=== PATIENT | female | born 1935 | race Caucasian/White ===

== ENCOUNTER 2016-05-11 10:12 | Emergency (ER) | payer MEDICARE, BC ==
[2016-05-11] MEDS ORDERED: NS 0.9% 1000 ML* 2,000 ML IV ONE (11:40)
[2016-05-11 11:50] LABS: Hematocrit 35 % (35-47); Hemoglobin 11.7 g/dl (12.0-16.0); Mean Corpuscular HGB Conc 33 g/dl (31-36); Mean Corpuscular Hemoglobin 30 pg (27-31); Mean Corpuscular Volume 88 fL (80-97); Mean Platelet Volume 8 um3 (7.4-10.4); Red Blood Count 3.96 10^6/ul (4.0-5.4); Red Cell Distribution Width 14 % (10.5-15); White Blood Count 6.4 10^3/ul (3.5-10.8)
[2016-05-11 12:02] LABS: BUN/Creatinine Ratio 17.9 (8-20); Calcium 9.4 mg/dL (8.6-10.3); EGFR African American 73.2 (>60); EGFR Non-African American 56.9 (>60); Globulin 2.6 g/dL (2-4); Magnesium 2.2 mg/dL (1.9-2.7); Potassium 4.2 mmol/L (3.5-5.0); Total Bilirubin 0.4 mg/dL (0.2-1.0); Total Protein 6.6 g/dL (6.4-8.9)
--- NOTE | 2016-05-11 12:03 | RAD ---
INDICATION: Syncope. CVA. Bleed. COMPARISON: MRI brain May 31, 2010 TECHNIQUE: Noncontrast axial source images were acquired from the skull base to the vertex. FINDINGS: Ventricles/sulci: The ventricles and cisterns are normal in size and configuration for age. Brain parenchyma: There is no focal parenchymal finding, evidence of intracranial mass, or intracranial mass effect. Intracranial hemorrhage:None. Extra-axial spaces: There are no abnormal extra axial fluid collections or evidence of extra-axial mass. Calvarium: There is no calvarial fracture or other calvarial abnormality. Scalp: There is no evidence of scalp or extracalvarial soft tissue abnormality. Paranasal sinuses/mastoid: The paranasal sinuses and mastoid air cells are clear. Other: None. IMPRESSION: NO ACUTE INTRACRANIAL FINDINGS
[2016-05-11 12:11] LABS: TSH (Thyroid Stimulating Horm) 2.55 mcIU/mL (0.34-5.60)
--- NOTE | 2016-05-11 12:22 | RAD ---
INDICATION: Dizziness, fall. Negative for loss of consciousness. COMPARISON: January 31, 2016 chest radiograph and May 26, 2015 CT. TECHNIQUE: Dual energy PA and routine lateral views of the chest were obtained. REPORT: Elevated lung volumes with increased AP thoracic diameter and partial flattening of the hemidiaphragms. Mild prominence of the interstitial markings and multiple unchanged bilateral small calcified pulmonary granulomas. No alveolar consolidation, suspicious focal pulmonary lesion, pleural effusion, pneumothorax. The heart, pulmonary vasculature, and mediastinal contours are unremarkable. Thoracic degenerative spondylosis and mildly increased thoracic kyphosis. IMPRESSION: Stigmata of chronic obstructive pulmonary disease as well as previous granulomatous disease.. No acute cardiopulmonary process evident.
--- NOTE | 2016-05-11 14:01 | ED ---
Marcellus Graves Matthew, scribed for Ronal Luu MD on 05/11/16 at 1205 . Syncope/Near Syncope - HPI Summary HPI Summary: A 80 y/o female presents to the ED after a syncopal episode at 02:00 this morning. She sat on the edge of her bed in the middle of the night and when she stood up she became dizzy and syncopated. Associated symptoms include LOC. She denies urinary symptoms, palpitations, calf pain, vomiting, diarrhea, fever, slurred speech, weakness, dizziness - currently, blood w/ stool, black stools, head trauma, and back pain. The patient states that she has felt unsteady for the past few weeks. She has a Hx of near syncopal episodes. On one occasion she was dehydrated and on another it was a result of a vasovagal syncope. She does not become dizzy when sitting up. The patient is not on a blood thinners. She recently had right knee surgery and has been doing physical therapy, which has consisted of biking 2 miles on a stationary bike. She admits that she may not be drinking enough fluids post work-out. - History Of Current Complaint Chief Complaint: EDSyncope Time Seen by Provider: 05/11/16 11:08 Hx Obtained From: Patient Onset/Duration: Sudden Onset, Lasting Minutes, Resolved Context: Unwitnessed, Loss Of Consciousness Activity At Onset: Exertion - ambulation Associated Head Trauma: No Aggravating Factor(s): Position Change Alleviating Factor(s): Spontaneous Resolution Associated Signs And Symptoms: Dizzy - since resolved - Allergies/Home Medications Allergies/Adverse Reactions: Allergies Allergy/AdvReac Type Severity Reaction Status Date / Time Iodinated Diagnostic Agents Allergy Severe Rash Verified 02/03/16 06:25 CATS/TREE POLLENS Allergy RUNNY Uncoded 02/03/16 06:25 NOSE, DRY EYES PMH/Surg Hx/FS Hx/Imm Hx Endocrine/Hematology History: Reports: Hx Thyroid Disease Cardiovascular History: Reports: Hx Peripheral Vascular Disease - VARICOSE VEINS , Other Cardiovascular Problems/Disorders - CHOLESTEROL CONTROL WITH MEDS Respiratory History: Reports: Hx Asthma, Other Respiratory Problems/Disorders - PATIENT STATES SHE HAS A RUNNY NOSE ALL THE TIME Musculoskeletal History: Reports: Hx Arthritis - RIGHT KNEE Sensory History: Reports: Hx Cataracts - HX OF, Hx Contacts or Glasses - GLASSES Denies: Hx Hearing Aid Opthamlomology History: Reports: Hx Cataracts - HX OF, Hx Contacts or Glasses - GLASSES Psychiatric History: Reports: Hx Anxiety - CONTROL WITH MEDS - Cancer History Cancer Type, Location and Year: Melanoma 2013 Hx Chemotherapy: No Hx Radiation Therapy: No - Surgical History Surgery Procedure, Year, and Place: GB REMOVED 1994, TONSILECTOMY, LEFT SHOULDER SURGERY, rotator cuff 03/07. Right TKA. Melanoma repair Hx Anesthesia Reactions: No Infectious Disease History: No Infectious Disease History: Reports: Hx Shingles - YEARS AGO Denies: Traveled Outside the [place] in Last 30 Days - Family History Known Family History: Positive: Cardiac Disease, Hypertension - Social History Alcohol Use: None Substance Use Type: Reports: None Hx Tobacco Use: No Smoking Status (MU): Never Smoked Tobacco Have You Smoked in the Last Year: No Review of Systems Constitutional: Negative Negative: Fever Eyes: Negative ENT: Negative Cardiovascular: Negative Negative: Palpitations, Chest Pain Respiratory: Negative Negative: Shortness Of Breath Gastrointestinal: Negative Negative: Vomiting Genitourinary: Negative Negative: incontinence Musculoskeletal: Negative Negative: Myalgia, Edema Skin: Negative Neurological: Other - near syncope Positive: Syncope. Negative: Weakness, Slurred Speech Psychological: Normal All Other Systems Reviewed And Are Negative: Yes Physical Exam - Summary Physical Exam Summary: The patient is well-nourished in no acute distress and in no acute pain. The skin is warm and dry and skin color reflects adequate perfusion. The patient surgical scare as healed well. HEENT: The head is normocephalic and atraumatic. The pupils are equal and reactive. The conjunctivae are clear and without drainage. Nares are patent and without drainage. Mouth reveals moist mucous membranes and the throat is without erythema and exudate. The external ears are intact. The ear canals are patent and without drainage. The tympanic membranes are intact. Neck is supple with full range of motion and non-tender. There are no carotid bruits. There is no neck vein distension. Respiratory: Chest is non-tender. Lungs are clear to auscultation and breath sounds are symmetrical and equal. Cardiovascular: Heart is regular rate and rhythm. There is no murmur or rub auscultated. There is no peripheral edema and pulses are symmetrical and equal. Abdomen: The abdomen is soft and non-tender. There are normal bowel sounds heard in all four quadrants and there is no organomegaly palpated. Musculoskeletal: There is no back pain noted. Extremities are non-tender with full range of motion. There is good capillary refill. There is no peripheral edema or calf tenderness elicited. Neurological: Patient is alert and oriented to person, place and time. The patient has symmetrical motor strength in all four extremities. Cranial nerves are grossly intact. Deep tendon reflexes are symmetrical and equal in all four extremities. Psychiatric: The patient has an appropriate affect and does not exhibit any anxiety or depression. Triage Information Reviewed: Yes Vital Signs On Initial Exam: Initial Vitals Temp Pulse Resp BP Pulse Ox 98.9 F 76 16 134/57 97 05/11/16 10:49 05/11/16 10:49 05/11/16 10:49 05/11/16 10:49 05/11/16 10:49 Vital Signs Reviewed: Yes - [place] Coma Scale Coma Scale Total: 15 Diagnostics - Vital Signs Vital Signs Temp Pulse Resp BP Pulse Ox 05/11/16 10:51 74 18 98 05/11/16 10:49 98.9 F 76 16 134/57 97 - Laboratory Lab Results: Lab Results 05/11/16 05/11/16 05/11/16 Range/Units 10:58 10:58 10:58 WBC 6.4 (3.5-10.8) 10^3/ul RBC 3.96 L (4.0-5.4) 10^6/ul Hgb 11.7 L (12.0-16.0) g/dl Hct 35 (35-47) % MCV 88 (80-97) fL MCH 30 (27-31) pg MCHC 33 (31-36) g/dl RDW 14 (10.5-15) % Plt Count 206 (150-450) 10^3/ul MPV 8 (7.4-10.4) um3 Neut % (Auto) 77.6 (38-83) % Lymph % (Auto) 14.8 L (25-47) % York % (Auto) 5.5 (1-9) % Eos % (Auto) 1.5 (0-6) % Baso % (Auto) 0.6 (0-2) % Absolute Neuts (auto) 5.0 (1.5-7.7) 10^3/ul Absolute Lymphs (auto) 0.9 L (1.0-4.8) 10^3/ul Absolute Monos (auto) 0.4 (0-0.8) 10^3/ul Absolute Eos (auto) 0.1 (0-0.6) 10^3/ul Absolute Basos (auto) 0 (0-0.2) 10^3/ul Absolute Nucleated RBC 0 10^3/ul Nucleated RBC % 0 Sodium 139 (133-145) mmol/L Potassium 4.2 (3.5-5.0) mmol/L Chloride 104 (101-111) mmol/L Carbon Dioxide 30 (22-32) mmol/L Anion Gap 5 (2-11) mmol/L BUN 17 (6-24) mg/dL Creatinine 0.95 (0.51-0.95) mg/dL Est GFR ( Amer) 73.2 (>60) Est GFR (Non-Af Amer) 56.9 (>60) BUN/Creatinine Ratio 17.9 (8-20) Glucose 122 H (70-100) mg/dL Lactic Acid 1.8 (0.5-2.0) mmol/L Calcium 9.4 (8.6-10.3) mg/dL Magnesium 2.2 (1.9-2.7) mg/dL Total Bilirubin 0.40 (0.2-1.0) mg/dL AST 17 (13-39) U/L ALT 11 (7-52) U/L Alkaline Phosphatase 60 (34-104) U/L Troponin I 0.00 (<0.04) ng/mL B-Natriuretic Peptide ( - 100) pg/mL Total Protein 6.6 (6.4-8.9) g/dL Albumin 4.0 (3.2-5.2) g/dL Globulin 2.6 (2-4) g/dL Albumin/Globulin Ratio 1.5 (1-3) TSH 2.55 (0.34-5.60) mcIU/mL 05/11/16 Range/Units 10:58 WBC (3.5-10.8) 10^3/ul RBC (4.0-5.4) 10^6/ul Hgb (12.0-16.0) g/dl Hct (35-47) % MCV (80-97) fL MCH (27-31) pg MCHC (31-36) g/dl RDW (10.5-15) % Plt Count (150-450) 10^3/ul MPV (7.4-10.4) um3 Neut % (Auto) (38-83) % Lymph % (Auto) (25-47) % York % (Auto) (1-9) % Eos % (Auto) (0-6) % Baso % (Auto) (0-2) % Absolute Neuts (auto) (1.5-7.7) 10^3/ul Absolute Lymphs (auto) (1.0-4.8) 10^3/ul Absolute Monos (auto) (0-0.8) 10^3/ul Absolute Eos (auto) (0-0.6) 10^3/ul Absolute Basos (auto) (0-0.2) 10^3/ul Absolute Nucleated RBC 10^3/ul Nucleated RBC % Sodium (133-145) mmol/L Potassium (3.5-5.0) mmol/L Chloride (101-111) mmol/L Carbon Dioxide (22-32) mmol/L Anion Gap (2-11) mmol/L BUN (6-24) mg/dL Creatinine (0.51-0.95) mg/dL Est GFR ( Amer) (>60) Est GFR (Non-Af Amer) (>60) BUN/Creatinine Ratio (8-20) Glucose (70-100) mg/dL Lactic Acid (0.5-2.0) mmol/L Calcium (8.6-10.3) mg/dL Magnesium (1.9-2.7) mg/dL Total Bilirubin (0.2-1.0) mg/dL AST (13-39) U/L ALT (7-52) U/L Alkaline Phosphatase (34-104) U/L Troponin I (<0.04) ng/mL B-Natriuretic Peptide 141 H ( - 100) pg/mL Total Protein (6.4-8.9) g/dL Albumin (3.2-5.2) g/dL Globulin (2-4) g/dL Albumin/Globulin Ratio (1-3) TSH (0.34-5.60) mcIU/mL Result Diagrams: 05/11/16 10:58 05/11/16 10:58 Lab Statement: Any lab studies that have been ordered have been reviewed, and results considered in the medical decision making process. - Radiology CXR Xray Interpretation: No Acute Changes - IMPRESSION: Stigmata of chronic obstructive pulmonary disease as well as previous granulomatous disease.. No acute cardiopulmonary process evident. Radiology Interpretation Completed By: Radiologist - CT Brain CT CT Interpretation: No Acute Changes - IMPRESSION: NO ACUTE INTRACRANIAL FINDINGS CT Interpretation Completed By: Radiologist - EKG 10:20 Cardiac Rate: NL - 78 bpm EKG Rhythm: Sinus Rhythm EKG Interpretation: Normal [place]; No ST elevation Course/Dx Assessment/Plan: A 80 y/o female presents to the ED after a syncopal episode at 02:00 this morning. She sat on the edge of her bed in the middle of the night and when she stood up she became dizzy and syncopated. Associated symptoms include LOC. She denies urinary symptoms, palpitations, calf pain, vomiting, diarrhea, fever, slurred speech, weakness, dizziness - currently, blood w/ stool , black stools, head trauma, and back pain. Lab results were reviewed. EKG shows NSR at 78bpm. CT Brain shows no acute intracranial findings. CXR shows no acute cardiopulmonary disease. The patient will be discharged home and follow- up with her PCP - Diagnoses Differential Diagnosis/HQI/PQRI: Positive: Cerebral Vascular Accident, Dysrhythmia, GI Bleed, Hypoglycemia, Hypovolemia, Metabolic Reaction, Myocardial Infarction, Vasovagal Episode Provider Diagnoses: Syncope, Orthostatic hypotension Discharge - Discharge Plan Condition: Stable Disposition: HOME Patient Education Materials: Syncope (ED), Hypotension (ED) Referrals: Audrey Bear MD [Primary Care Provider] - 2 Days Additional Instructions: Please follow-up with your primary care physician in two days. The documentation as recorded by the Marcellus roblero Matthew accurately reflects the service I personally performed and the decisions made by , Ronal Luu MD.
[2016-05-11 14:05] VITALS: BP 123/60
== END 2016-05-11 14:06 | disposition home or self-care (01) ==
LOC: ED 10:12
DX: I95.1 Orthostatic hypotension (principal); Z85.820 Personal history of malignant melanoma of skin; J45.909 Unspecified asthma, uncomplicated
CPT/HCPCS: 36415; 70450; 71020; 80053; 83605; 83735; 83880; 84443; 84484; 85025; 93005; 99283

== ENCOUNTER 2016-10-05 07:30 | Inpatient (IN) | payer MEDICARE, BC ==
--- NOTE | 2016-10-02 14:31 | HP ---
HISTORY AND PHYSICAL: DATE OF SURGERY: 10/05/16 ATTENDING SURGEON: Dr. Hall (DICTATED BY MANDY REEVES) PROCEDURE: Right total hip arthroplasty. CHIEF COMPLAINT: Right hip pain. HISTORY OF PRESENT ILLNESS: Ms. Monte is a 81-year-old female with complaints of right hip pain secondary to advanced osteoarthritis. She has failed conservative management and has elected to proceed with the right total hip arthroplasty which is scheduled for 10/05/16. PAST MEDICAL HISTORY: High cholesterol, hypothyroidism, osteoarthritis, anxiety , melanoma, syncopal episodes. PAST SURGICAL HISTORY: Right total knee arthroplasty, left rotator cuff repair , cholecystectomy, tonsillectomy, and adenoidectomy. MEDICATIONS: 1. Simvastatin 20 mg once a day. 2. Synthroid 88 mcg once a day. 3. Citalopram hydrobromide 30 mg once a day. 4. Lorazepam 1 mg once a day. 5. Calcium plus vitamin D. 6. Multivitamins. 7. Fish oil. ALLERGIES: To IMAGING DYE. FAMILY HISTORY: Diabetes, heart disease, hypertension, and breast cancer. SOCIAL HISTORY: She is a 81-year-old female, she lives with her . She does not smoke or use drugs. REVIEW OF SYSTEMS: A complete 14-point review of systems was reviewed with the patient, was positive for hypothyroidism. PHYSICAL EXAMINATION GENERAL: She is well developed, well nourished in no acute distress. VITAL SIGNS: She stands 5 feet 6 inches tall, weighs 150 pounds. Her blood pressure is 117/64, and heart rate 76. HEENT: Normocephalic and atraumatic. NECK: Supple. No palpable lymph nodes. Trachea is midline. PULMONARY: Lungs are clear to auscultation bilaterally. CARDIOVASCULAR: Regular rate and rhythm. Strong S1 and S2. ABDOMEN: Soft, nontender, and nondistended. MUSCULOSKELETAL: Right lower extremity, the skin is intact. She has no open wounds or abrasions. She had decreased internal and external rotation of her right hip and she walks with an antalgic type gait. Her lower extremity muscle group strengths are intact at 5/5. She has 2+ dorsalis pedis pulses, intact sensation. NEUROLOGIC: She is alert and oriented x3. ASSESSMENT/PLAN: Ms. Monte is a 81-year-old female with complaints of right hip pain secondary to advanced osteoarthritis. She has failed conservative management and has elected to proceed with a right total hip arthroplasty. Her surgery is scheduled for 10/05/16. Dr. Hall discussed the risks and the benefits of the surgery today. All of her questions were answered. Coumadin was sent to her pharmacy for postoperative DVT prophylaxis. She will see Dr. Hall back 2 weeks after the surgery. MANDY REEVES [id number]/[facility] #: [id number] OMARI
[2016-10-09] MEDS ORDERED: Buffered Lidocaine 0.9% SYRIN* 5 ML/SYR SYRINGE INTRADERM ONE (06:00)
[2016-10-09] MEDS ORDERED: Famotidine IV* 10 MG/ML 2 ML (20 mg) IV ONE (06:00)
[2016-10-09] MEDS ORDERED: ceFAZolin 2 GM PREMIX(*) 2 GM/50 ML BAG IVPB ONE (08:30)
[2016-10-09] MEDS ORDERED: Buffered Lidocaine 0.9% SYRIN* 5 ML/SYR SYRINGE ONE (08:30)
[2016-10-09] MEDS ORDERED: Famotidine IV* 10 MG/ML 2 ML (20 mg) ONE (08:30)
[2016-10-09] MEDS ORDERED: fentaNYL* 50 MCG/ML 2 ML VIAL (100 MCG VIAL) ONE (09:01)
[2016-10-09] MEDS ORDERED: Midazolam* 1 MG/ML 5 ML VIAL (5 MG) ONE (09:01)
[2016-10-09] MEDS ORDERED: Ketorolac INJ* 30 MG/ML 1 ML VIAL ONE (09:02)
[2016-10-09] MEDS ORDERED: Dexamethasone IV* 4 MG/ML 1 ML (4 MG) ONE (09:02)
[2016-10-09] MEDS ORDERED: Ondansetron INJ* 2 MG/ML VIAL ONE (09:02)
[2016-10-09] MEDS ORDERED: Lidocaine 2% PF * 5 ML VIAL ONE (09:02)
[2016-10-09] MEDS ORDERED: Propofol* 10 MG/ML 20 ML BTL IV PUSH ONE (09:02)
[2016-10-09] MEDS ORDERED: Morphine PF AMP (0.5MG/ML)* 5 MG/10 ML AMP ONE (09:02)
[2016-10-09] MEDS ORDERED: KETAMINE HCL* 50 MG/ML 10 ML VIAL ONE (10:55)
[2016-10-09] MEDS ORDERED: Midazolam* 1 MG/ML 2 ML VIAL (2 MG) ONE (11:10)
[2016-10-09] MEDS ORDERED: EPHEDrine (Pressors)* 50 MG/ML VIAL ONE (11:16)
[2016-10-09] MEDS ORDERED: HYDROmorphone* 1 MG/ML 1 ML SYR IV PRN (11:45)
[2016-10-09] MEDS ORDERED: DiMENhydriNATE IV* 50 MG/ML VIAL IV PUSH PRN ×2 (11:45→11:53)
[2016-10-09] MEDS ORDERED: oxyCODONE TAB* 5 MG TAB PO PRN ×2 (11:45→11:49)
[2016-10-09] MEDS ORDERED: Gabapentin CAP(*) 300 MG PO ONE (11:47)
[2016-10-09] MEDS ORDERED: Nalbuphine* 20 MG/ML 1 ML VIAL IV PRN (11:49)
[2016-10-09] MEDS ORDERED: Acetaminophen TAB* 325 MG PO PRN (11:49)
[2016-10-09] MEDS ORDERED: Naloxone* 0.4 MG/ML 1 ML VIAL IV PRN (11:49)
[2016-10-09] MEDS ORDERED: Acetaminophen TAB* 325 MG PO SCH (12:00)
[2016-10-09] MEDS ORDERED: Magnesium Hydroxide LIQ* 30 ML UDC PO PRN (13:07)
[2016-10-09] MEDS ORDERED: Polyethylene Glycol 3350* 17 GM PACKET PO PRN (13:07)
[2016-10-09] MEDS ORDERED: Bisacodyl SUPP* 10 MG SUPP PR PRN (13:07)
--- NOTE | 2016-10-09 13:10 | RAD ---
Indication: Right hip replacement in the lumbar. Single view of the pelvis demonstrates sizing of the right total hip arthroplasty. IMPRESSION: Intraoperative control films for sizing of the right hip prosthesis.
[2016-10-09] MEDS ORDERED: Albuterol HFA INHALER* 8 gm MDI INH PRN (13:14)
--- NOTE | 2016-10-09 14:04 | RAD ---
INDICATION: Postoperative right hip arthroplasty COMPARISON: None TECHNIQUE: A single AP view of the pelvis is submitted. FINDINGS: Osseous structures: There is right hip arthroplasty. Both femoral and acetabular components appear well seated SI joints and symphysis: The SI joints are intact. There is mild sclerosis about the symphysis pubis Soft tissues: There are soft tissue changes about the right hip compatible with the recent surgery Other: None IMPRESSION: RIGHT HIP ARTHROPLASTY DEMONSTRATING A NORMAL POSTOPERATIVE APPEARANCE
--- NOTE | 2016-10-09 14:05 | RAD ---
INDICATION: Postoperative right hip arthroplasty COMPARISON: Right hip May 22, 2016 TECHNIQUE: Portable AP and crosstable lateral imaging of the right hip was performed FINDINGS: There is right hip arthroplasty. Both femoral and acetabular components appear well seated. There are soft tissue changes compatible with the recent surgery. IMPRESSION: RIGHT HIP ARTHROPLASTY.
[2016-10-09] MEDS: Acetaminophen TAB* 325 MG PO SCH ×2 (16:40→20:01)
[2016-10-09] MEDS: Ibuprofen TAB* 600 MG PO SCH (18:34)
[2016-10-09] MEDS: ceFAZolin VIAL(*) 1 GM in NS 0.9% 50 ML* 50 ML IVPB SCH (18:34)
[2016-10-09] MEDS ORDERED: Gabapentin CAP(*) 100 MG PO ONE (20:00)
[2016-10-09] MEDS: Citalopram TAB* 10 MG PO SCH (20:02)
[2016-10-09] MEDS: Docusate CAP* 100 MG PO SCH (20:02)
[2016-10-09] MEDS: Atorvastatin* 10 MG TAB PO SCH (20:02)
[2016-10-09] MEDS ORDERED: diPHENhydraMINE PO* 25 MG PO ONE (22:00)
[2016-10-09] MEDS ORDERED: LORazepam TAB(*) 0.5 MG PO PRN (22:10)
[2016-10-10] MEDS: Ibuprofen TAB* 600 MG PO SCH ×3 (00:33→12:23)
[2016-10-10] MEDS: Acetaminophen TAB* 325 MG PO SCH ×6 (00:33→19:53)
[2016-10-10] MEDS: ceFAZolin VIAL(*) 1 GM in NS 0.9% 50 ML* 50 ML IVPB SCH ×2 (02:35→09:40)
[2016-10-10] MEDS ORDERED: Morphine INJ* 2 MG/ML 1 ML SYRINGE IV PRN (02:42)
[2016-10-10] MEDS ORDERED: diPHENhydraMINE IV* 50 MG/ML 1 ml VIAL (BENADRYL) IV PRN (02:42)
[2016-10-10] MEDS: traMADol TAB* 50 MG PO PRN ×2 (03:46→16:04)
[2016-10-10] MEDS: Levothyroxine TAB* 88 MCG TAB PO SCH (05:42)
[2016-10-10 06:50] LABS: Hematocrit 26 % (35-47); Hemoglobin 8.7 g/dl (12.0-16.0)
[2016-10-10 07:02] LABS: BUN/Creatinine Ratio 17.6 (8-20); Calcium 8.4 mg/dL (8.6-10.3); EGFR African American 76.7 (>60); EGFR Non-African American 59.6 (>60); Potassium 4.6 mmol/L (3.5-5.0)
[2016-10-10] MEDS: Docusate CAP* 100 MG PO SCH ×2 (08:11→20:33)
--- NOTE | 2016-10-10 08:57 | OP ---
DATE OF OPERATION: 10/09/16 - ROOM #348 DATE OF : 39 ATTENDING SURGEON: Nancy Hall MD PLASTERER ROUGH: MANDY Clifton. Ms. Billy did help throughout the procedure with preparation of the leg, wound retraction, manipulation of the hip, and wound closure. ANESTHESIOLOGIST: Dr. Rhodes. ANESTHESIA: Spinal. PRE-OP DIAGNOSIS: Severe end-stage degenerative osteoarthritis of the right hip joint. POST-OP DIAGNOSIS: Severe end-stage degenerative osteoarthritis of the right hip joint. OPERATIVE PROCEDURE: Right total hip arthroplasty. HARDWARE USED: This is Nettie uncemented total hip hardware. For the cup, 54E Tritanium cluster hole shell, 220-mm screws were used. For the insert, a Trident X3 0-degree 40C liner. For the stem, an Accolade TMZF, size 3 with a 132-degree neck. Biolox delta ceramic V40 femoral head, size 40 with a -2.5 adaptor was used. ESTIMATED BLOOD LOSS: 300 cc. COMPLICATIONS: None. SPECIMEN: Femoral head and acetabular reaming, sent to Pathology. INDICATION: Ms. Monte is a 81-year-old female with 6 months of worsening right hip pain. Radiographs confirmed [id number] arthritis. She failed conservative treatment with anti-inflammatories, pain medication, intra- articular injection, and physical therapy. Due to continued pain and decreased quality of life, she elected to undergo right total hip arthroplasty. Informed consent was obtained from the patient. She understood the risks of the procedure included, but were not limited to bleeding, infection, damage to nearby structures, continued pain, need for further surgery, intraoperative fracture, nerve palsy, hardware failure or loosening, leg length discrepancy, dislocation, stroke, heart attack, blood clot, and . She wished to proceed. FINDINGS: Intraoperatively, the patient was noted to have severe end-stage arthritis with complete loss of cartilage in the acetabulum and femoral head. DESCRIPTION OF PROCEDURE: Ms. Monte was identified in the preanesthesia unit. Her right lower extremity was marked as the correct operative site. Informed consent was signed and placed in the chart. The patient was taken to the operating room and placed under spinal anesthesia. Guerra catheter was placed. The patient was placed in the left lateral decubitus position on the pegboard. All bony prominences were well padded. Right lower extremity was prepped and draped in the usual sterile fashion. Preop time-out was made to correctly identify the patient's side and site. A 12-cm posterior hip incision was made with a 10-blade and carried down to the lateral fascial layer. The lateral fascial layer was then incised in line with the skin incision. A Charnley retractor was placed and the posterior aspect of the hip joint was visualized. Piriformis and conjoint tendons were identified. These were elevated off the posterolateral femur with electrocautery and tagged with two #5 Ethibonds. Next, electrocautery was used to make a standard posterolateral capsular flap. This was tagged with two #5 Ethibonds. The hip was carefully dislocated. Lesser troch to center of the femoral head measured 52 mm. Oscillating saw was used to make the appropriate femoral neck cut. Femoral head was sent to Pathology. The femur was carefully retracted anteriorly. After appropriate placement of retractor, the acetabulum was easily visualized. Long-handled knife was used to sharply remove any remaining labrum from the acetabular rim. The acetabulum was next sequentially reamed up to a size 53. A good bleeding bone bed was obtained. 53 trial had excellent fit. Final implant was a Tritanium hemispherical cluster hole shell 54E. This was impacted into place in the acetabulum without any difficulty or complication. There was excellent stability. There was appropriate anteversion and abduction angle. Two 20-mm screws were placed in the superoposterior quadrant for extra stability. The Trident X3 0-degree 40E liner was chosen. This was impacted into the acetabular cup without difficulty. Stability of the liner was checked and rechecked and noted to be stable. Attention was next turned to preparation of the femur. A canal finder was used to enter the proximal femur. The proximal femur was sequentially broached up to a size 3. Size 3 broach had good stability and appropriate anteversion. Trial 132- degree neck as well as a 40 +0 femoral head were chosen. This measured 56 mm, therefore a -2.5 head was chosen. This measured 53 mm lesser troch to center of the femoral head. The hip was reduced and taken through a range of motion. The hip was stable in all positions. There was appropriate soft tissue tension and leg length. The hip was carefully dislocated. All trials were carefully removed. Final implant chosen was the Accolade TMZF, size 3 with a 132-degree neck. This was carefully impacted into the femoral canal without difficulty. Good stability and the anteversion were obtained. A Biolox delta ceramic V40 femoral head size 40 with a -2.5 adaptor sleeve was chosen. This was impacted onto the femoral neck without difficulty. Lesser troch to center of the femoral head measured 52 mm. The hip was reduced and taken through a range of motion. The hip was stable in all positions. The hip was copiously irrigated with sterile saline. Previously tagged tendons and capsule were reapproximated to the posterolateral femur through 2 trochanteric drill holes. The lateral fascial layer was closed using interrupted #1 Vicryls. The rest of the incision was closed in a layered fashion using 0 and 2- 0 Vicryls. Skin was closed using running 3-0 Monocryl and Dermabond. Sterile Adaptic, 4 x 4's, and paper tape were used to cover the incision. The patient's anesthesia was reversed without difficulty. She was taken to the PACU in stable condition. Intended weightbearing will be weightbearing as tolerated with posterior hip precautions. Intended DVT prophylaxis will be Coumadin with a Lovenox bridge. [id number]/[facility] #: [id number] [facility] HOSPITALMonique
--- NOTE | 2016-10-10 09:17 | PN ---
Progress Note - Progress Note SOAP: Subjective: []Patient seen OOB in chair. She denies current hip pain. Denies dizziness, SOB or CP. Objective: [] Vital Signs Temp 97.6 F 10/10/16 07:23 Pulse 62 10/10/16 07:23 Resp 16 10/10/16 08:21 BP 126/44 10/10/16 07:23 Pulse Ox 100 10/10/16 08:21 Intake & Output 10/09/16 10/10/16 10/10/16 18:59 06:59 18:59 Intake Total 2350 1794 500 Output Total 1075 Balance 2350 719 500 Weight 144 lb 6.4 oz Intake: IV Fluids 1999 674 LR 2000 674 Oral 350 1120 Guerra Irrigate Amount 500 Output: Gurera 1075 Laboratory Results - last 24 hr 10/10/16 10/10/16 10/10/16 06:37 06:37 06:37 Hgb 8.7 L Hct 26 L INR (Anticoag Therapy) 0.97 Sodium 133 Potassium 4.6 Chloride 101 Carbon Dioxide 27 Anion Gap 5 BUN 16 Creatinine 0.91 Est GFR ( Amer) 76.7 Est GFR (Non-Af Amer) 59.6 BUN/Creatinine Ratio 17.6 Glucose 108 H Calcium 8.4 L Right hip dressing is dry and intact calf is non tender and soft +DF/PF right ankle sensation intact Assessment: []s/p Right total hip arthroplasty POD #1 Plan: []PT/OT WBAT RLE Lovenox for DVT prophylaxis Home in 1- 2 days
[2016-10-10] MEDS: Enoxaparin(*) 30 MG/0.3 ML SYR SUBCUT SCH (09:42)
[2016-10-10] MEDS: Ibuprofen TAB* 800 MG PO SCH (18:12)
[2016-10-10] MEDS: Atorvastatin* 10 MG TAB PO SCH (20:33)
[2016-10-10] MEDS: LORazepam TAB(*) 1 MG PO SCH (20:33)
[2016-10-10] MEDS: Citalopram TAB* 10 MG PO SCH (20:34)
[2016-10-11] MEDS: Acetaminophen TAB* 325 MG PO SCH ×6 (00:01→20:42)
[2016-10-11] MEDS: traMADol TAB* 50 MG PO PRN ×2 (00:15→06:01)
[2016-10-11] MEDS: Ibuprofen TAB* 800 MG PO SCH ×3 (02:35→18:10)
[2016-10-11] MEDS: Levothyroxine TAB* 88 MCG TAB PO SCH (06:01)
[2016-10-11 06:05] LABS: Hematocrit 25 % (35-47); Hemoglobin 8.2 g/dl (12.0-16.0)
[2016-10-11 06:25] LABS: BUN/Creatinine Ratio 17.2 (8-20); Calcium 8.3 mg/dL (8.6-10.3); EGFR African American 74.8 (>60); EGFR Non-African American 58.2 (>60); Potassium 4.3 mmol/L (3.5-5.0)
[2016-10-11] MEDS: Docusate CAP* 100 MG PO SCH ×2 (08:34→20:41)
--- NOTE | 2016-10-11 09:55 | PN ---
Progress Note - Progress Note SOAP: Subjective: []Patient seen OOB in chair. She reports feeling lightheaded last night around 1 am when she got up to walk to BR. She feels better this morning. Her pain in the right hip is well managed. Objective: [] Vital Signs Temp 97.8 F 10/11/16 07:44 Pulse 66 10/11/16 07:44 Resp 18 10/11/16 08:01 BP 124/50 10/11/16 07:44 Pulse Ox 98 10/11/16 07:44 Intake & Output 10/10/16 10/11/16 10/11/16 18:59 06:59 18:59 Intake Total 1454 1750 360 Output Total 614 1575 Balance 840 175 360 Intake: Oral 954 1750 360 Gu[place] Amount 500 Output: Urine 614 1575 Other: Estimated Void Small # Bowel Movements 1 0 Estimated Stool Amount Medium Medium # Voids 1 Laboratory Results - last 24 hr 10/11/16 10/11/16 10/11/16 05:44 05:44 05:44 Hgb 8.2 L Hct 25 L INR (Anticoag Therapy) 1.04 Sodium 133 Potassium 4.3 Chloride 102 Carbon Dioxide 28 Anion Gap 3 BUN 16 Creatinine 0.93 Est GFR ( Amer) 74.8 Est GFR (Non-Af Amer) 58.2 BUN/Creatinine Ratio 17.2 Glucose 92 Calcium 8.3 L Right hip dressings were changed. Minimal drainage on 4x4s. Moderate ecchymosis around incision, otherwise benign New 4x4s and tape applied to incision calf NT and soft +DF/PF right ankle sensation intact Assessment: []s/p Right total hip arthroplasty POD #2 Plan: []Monitor Hgb/Hct, if symptomatic may consider 1 U PRBC Lovenox for DVT prophylaxis Probable discharge home tomorrow
[2016-10-11] MEDS: Enoxaparin(*) 30 MG/0.3 ML SYR SUBCUT SCH (11:01)
[2016-10-11] MEDS: Ondansetron INJ* 2 MG/ML VIAL IV PRN ×2 (20:39→20:49)
[2016-10-11] MEDS: Citalopram TAB* 10 MG PO SCH (20:41)
[2016-10-11] MEDS: LORazepam TAB(*) 1 MG PO SCH (20:41)
[2016-10-11] MEDS: Atorvastatin* 10 MG TAB PO SCH (20:42)
[2016-10-12] MEDS: Acetaminophen TAB* 325 MG PO SCH ×4 (00:51→12:44)
[2016-10-12] MEDS: Ibuprofen TAB* 800 MG PO SCH ×2 (02:12→10:03)
[2016-10-12] MEDS: Ondansetron INJ* 2 MG/ML VIAL IV PRN (03:49)
[2016-10-12] MEDS: Levothyroxine TAB* 88 MCG TAB PO SCH (05:33)
[2016-10-12 06:55] LABS: Hematocrit 25 % (35-47); Hemoglobin 8.3 g/dl (12.0-16.0)
--- NOTE | 2016-10-12 07:37 | PN ---
Progress Note - Progress Note SOAP: Subjective: Pt. is alert. Continues to report nausea. Denies pain r hip. Pt. wants to go home today. Objective: RLE - dressing c/d/i. distally nvi. thigh soft. Vital Signs: Temp Pulse Resp BP Pulse Ox 98.2 F 79 16 135/57 99 10/12/16 03:45 10/12/16 03:45 10/12/16 03:45 10/12/16 03:45 10/12/16 03:45 Laboratory Results - last 24 hr 10/12/16 10/12/16 06:35 06:36 Hgb 8.3 L Hct 25 L INR (Anticoag Therapy) 0.92 Assessment: 81 yo F pod 3 s/p RTHA Plan: Continue to decrease pain meds. Scopolamine patch this AM. wbat rle - pt/ot plan d/c to home today with vns.
[2016-10-12] MEDS: Docusate CAP* 100 MG PO SCH (07:51)
[2016-10-12] MEDS ORDERED: Scopolamine 1.5 mg* PATCH TRANSDERM SCH (08:00)
[2016-10-12 09:37] VITALS: BP 140/56
[2016-10-12] MEDS: Enoxaparin(*) 30 MG/0.3 ML SYR SUBCUT SCH (10:02)
--- NOTE | 2016-10-13 10:03 | DS ---
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 HISTORY OF PRESENT ILLNESS: Ms. Monte is a 81-year-old female with complaints of right hip pain. She failed conservative management and had elected to proceed with a right total hip arthroplasty. HOSPITAL COURSE: Ms. Monte was admitted electively to the hospital on 10/09/16 and underwent a rig ht total hip arthroplasty. She tolerated the procedure well with no complications. Postoperatively , she was placed on Lovenox daily for DVT prophylaxis. Her pain was well controlled with Tylenol an d ibuprofen and she made daily improvements with physical therapy. On postoperative day 1, her H an d H was 8.7 and 26; on postoperative day 2, H and H was 8.2 and 25; on postoperative day 3, her H an d H was 8.3 and 25. At the time of discharge on 10/12/16, she was afebrile, her vital signs were st able, and she was ambulating well and she was discharged home in stable condition. DISCHARGE MEDICATIONS: 1. Tylenol 650 mg every 4 hours. 2. Albuterol inhaler. 3. Lipitor 10 mg q.h.s. 4. Colace 2 to 3 times a day. 5. Celexa 30 mg q.h.s. 6. Ibuprofen 800 mg 3 times a day. 7. Synthroid 88 mcg daily. 8. Lorazepam 0.5 p.r.n. 9. Aspirin 325 twice a day. PHYSICAL EXAM UPON DISCHARGE: Her incision is clean, dry, and healing well. There is no signs of i nfection. She is ambulating well with the aid of a walker. Her lower extremity muscle group streng th are intact at 5/5. She has intact sensation, 2+ dorsalis pedis pulses. DISCHARGE INSTRUCTIONS: She was discharged home in stable condition. She was asked to take aspirin 325 twice a day for DVT prophylaxis. She will continue to take Tylenol and ibuprofen as needed for pain. She can call our office at anytime if she would like a prescription for something stronger, but this has been sufficient in the hospital. She will continue physical therapy at her home. She is weightbearing as tolerated and posterior hip precautions are in place. She will follow with Dr. Hall in 2 weeks and was asked to call our office sooner if she has any questions or concerns. MANDY REEVES [id number]/[facility] #: [id number]
== END 2016-10-12 14:20 | disposition home or self-care (01) | DRG 470 ==
LOC: AA 10-09 08:26 → SSU 10-09 14:34
PROVIDERS: ADMIT Orthopaedic Surgery Adult Reconstructive Orthopaedic Surgery; ATTEND Orthopaedic Surgery Adult Reconstructive Orthopaedic Surgery
PROC: 0SR904A Replacement of Right Hip Joint with Ceramic on Polyethylene Synthetic Substitute, Uncemented, Open Approach (ICD-10-PCS; principal; 2016-10-09 10:00)
DX: M16.11 Unilateral primary osteoarthritis, right hip (principal); E03.9 Hypothyroidism, unspecified; F41.9 Anxiety disorder, unspecified; Z96.651 Presence of right artificial knee joint; Z85.820 Personal history of malignant melanoma of skin; Z90.49 Acquired absence of other specified parts of digestive tract; Z91.041 Radiographic dye allergy status; Z80.3 Family history of malignant neoplasm of breast; Z83.3 Family history of diabetes mellitus; Z82.49 Family history of ischemic heart disease and other diseases of the circulatory system; Z79.82 Long term (current) use of aspirin
CPT/HCPCS: 36415; 72170; 80048; 85014; 85018; 85610; 94760; A9270-GY; C1713; C1776; J0690; J1100; J1650; J1885; J2250; J2405; J2704; J3010

== ENCOUNTER 2020-02-27 12:24 | Observation (INO) ==
[2020-02-27 15:37] LABS: ABS Lymphocytes 0.8 10^3/ul (1.0-4.8); ABS Monocytes 0.4 10^3/ul (0-0.8); ABS Neutrophils 6.2 10^3/ul (1.5-7.7); Eosinophil % 0.2 %; Hematocrit 33 % (35-47); Hemoglobin 11.3 g/dL (12.0-16.0); Lymphocyte % 10.9 %; Mean Corpuscular HGB Conc 35 g/dL (31-36); Mean Corpuscular Hemoglobin 31 pg (27-31); Mean Corpuscular Volume 90 fL (80-97); Mean Platelet Volume 7.5 fL (7.4-10.4); Platelet Count 222 10^3/uL (150-450); Red Blood Count 3.66 10^6 /uL (3.70-4.87); Red Cell Distribution Width 13 % (10-15); White Blood Count 7.5 10^3/uL (3.5-10.8)
[2020-02-27 15:45] LABS: Activated Partial Thrombo Time 25.4 seconds (26.0-38.0); INR 1.01 (0.82-1.09)
[2020-02-27 15:49] LABS: Troponin I 0.01 ng/mL (<0.03)
[2020-02-27 15:55] LABS: Urine Appearance Cloudy; Urine Bilirubin Negative (Negative); Urine Blood Negative (Negative); Urine Color Yellow; Urine Glucose Negative (Negative); Urine Ketones Negative (Negative); Urine Nitrite Negative (Negative); Urine Protein Negative (Negative); Urine Specific Gravity 1.009 (1.010-1.030); Urine Urobilinogen Negative (Negative)
[2020-02-27 15:56] LABS: Albumin/Globulin Ratio 1.6 (1-3); Calcium 9.4 mg/dL (8.6-10.3); EGFR African American 64.2 (>60); EGFR Non-African American 53.1 (>60); Globulin 2.5 g/dL (2-4); Magnesium 2.2 mg/dL (1.9-2.7); Potassium 4.3 mmol/L (3.5-5.0); Total Bilirubin 0.4 mg/dL (0.2-1.0); Total Protein 6.5 g/dL (6.4-8.9)
[2020-02-27 16:26] LABS: TSH Ultra Thyroid Stim Horm 1.57 mcIU/mL (0.34-5.60)
[2020-02-27] MEDS ORDERED: NS 0.9% 1000 ml BAG 1,000 ML IV ONE (16:32)
[2020-02-27] MEDS ORDERED: NS 0.9% 1000 ml BAG 1,000 ML IV SCH (17:45)
[2020-02-27] MEDS: Heparin 5000 UNITS/ML 1 mL VIAL SUBCUT SCH (21:59)
[2020-02-28] MEDS: Heparin 5000 UNITS/ML 1 mL VIAL SUBCUT SCH (05:16)
[2020-02-28 07:11] LABS: ABS Eosinophils 0.1 10^3/ul (0-0.6); ABS Lymphocytes 1.3 10^3/ul (1.0-4.8); ABS Monocytes 0.5 10^3/ul (0-0.8); ABS Neutrophils 3.4 10^3/ul (1.5-7.7); Hematocrit 31 % (35-47); Hemoglobin 10.8 g/dL (12.0-16.0); Mean Corpuscular HGB Conc 34 g/dL (31-36); Mean Corpuscular Hemoglobin 32 pg (27-31); Mean Corpuscular Volume 92 fL (80-97); Platelet Count 188 10^3/uL (150-450); Red Blood Count 3.42 10^6 /uL (3.70-4.87); Red Cell Distribution Width 13 % (10-15); White Blood Count 5.3 10^3/uL (3.5-10.8)
[2020-02-28 07:25] LABS: BUN/Creatinine Ratio 14.1 (8-20); Calcium 8.6 mg/dL (8.6-10.3); EGFR Non-African American 53.7 (>60); Potassium 4.2 mmol/L (3.5-5.0)
[2020-02-28] MEDS ORDERED: Cholecalciferol (VIT D3) 1,000 unit TAB PO SCH (09:00)
[2020-02-28] MEDS ORDERED: CMCS: Simvastatin 20 mg TAB (NF) PO SCH (09:00)
[2020-02-28 10:27] VITALS: BP 127/64
== END 2020-02-28 12:03 | disposition home or self-care (01) ==
LOC: ED 12:24 → MEDTELE 12:24
PROVIDERS: ADMIT Internal Medicine; ATTEND Internal Medicine